=== PATIENT | female | born 1950 ===

== ENCOUNTER 2020-07-15 19:05 | Inpatient (IN) | payer MEDICARE, OTHER ==
[~2020-07-15] VITALS: Ht 157.5 cm; Wt 87.4 kg
--- NOTE | 2020-07-15 19:26 | NUR ---
pt arrived to ER for SOB, weakness and nausea for a week, pt also complaining of lower back pain radiating to her legs, pt has a history of arthiritis, daughter at bedside
[2020-07-15 19:54] LABS: BASOPHILS % (AUTO) 1 % (0-1); EOSINOPHILS % (AUTO) 12 % (1-7); LYMPHOCYTES % (AUTO) 26 % (22-44); MEAN CORPUSCULAR HEMOGLOBIN 32.3 pg (27.0-34.8); MEAN CORPUSCULAR HGB CONC 34.3 g/dL (32.4-35.8); MEAN PLATELET VOLUME 8.7 fL (7.4-10.4); MONOCYTES % (AUTO) 10 % (2-9); NEUTROPHILS % (AUTO) 51 % (42-75); PLATELET COUNT 257 x10^3/uL (130-400); RED BLOOD COUNT 3.68 x10^6/uL (3.82-5.3); RED CELL DISTRIBUTION WIDTH 14.4 % (9.6-15.2)
[2020-07-15 19:57] LABS: ALANINE AMINOTRANSFERASE 32 U/L (12-78); ALBUMIN 3.5 g/dL (3.4-5.0); ANION GAP 6 mmol/L (5-15); CALCIUM 9.7 mg/dL (8.5-10.1); CHLORIDE 108 mmol/L (98-107); CREATININE 0.65 mg/dL (0.55-1.02)
[2020-07-15 20:01] LABS: ALKALINE PHOSPHATASE 70 U/L (45-117); BILIRUBIN,TOTAL 0.5 mg/dL (0.2-1.0); TOTAL PROTEIN 6.7 g/dL (6.4-8.2); TROPONIN I < 0.015 ng/mL (0.000-0.045)
[2020-07-15] MEDS ORDERED: OMNIPAQUE 350 MG/ML, 100ML BOTTLE ONE (20:33)
[2020-07-15] MEDS ORDERED: ONDANSETRON 2MG/ML, 2ML IVPush ONE (21:00)
[2020-07-15] MEDS ORDERED: MORPHINE SULFATE 4 MG/ML, 1ML IVPush PRN ×2 (21:00)
[2020-07-15] MEDS ORDERED: PLEASE ENTER ALLERGIES MC SCH (21:00)
[2020-07-15] MEDS ORDERED: SODIUM CHLORIDE FLUSH 10ML SYR IVF ONE (21:00)
--- NOTE | 2020-07-15 22:30 | NUR ---
PTS IV WAS INFILITRATED AFTER CT SCAN, THIS RN APPLIED WARM COMPRESS TO SITE
[2020-07-15] MEDS ORDERED: KETOROLAC 30 MG/1 ML ONE (23:00)
[2020-07-15] MEDS ORDERED: KETOROLAC 30 MG/1 ML IVPush ONE (23:00)
--- NOTE | 2020-07-16 00:06 | NUR ---
PT FEELING BETTER AFTER PAIN MEDS ADMINISTERED, PROVIDER IN ROOM TO DISCUSS POC, PT WANTED TO GO HOME AFTER BEING OFFERED ADMISSION TO INPATIENT
[2020-07-16] MEDS ORDERED: ONDANSETRON ODT 4 MG ONE (00:27)
[2020-07-16] MEDS ORDERED: ONDANSETRON ODT 4 MG PO ONE (00:30)
--- NOTE | 2020-07-16 00:46 | NUR ---
WHEN PT GOT OUT OF BED SHE STARTED TO VOMIT AND COMPLAIN OF PAIN AGAIN, PROVIDER CALLED TO SEE PT AGAIN, PT AGREED TO STAY AND GET ADMITTED FOR PAIN MANAGEMENT, ZOFRAN ODT WAS GIVEN PRIOR TO DISCHARGE AND PT REPORTED A RELIEF IN NAUSEA
--- NOTE | 2020-07-16 01:40 | NUR ---
PT WAS FALLING ASLEEP AND HER OXYGEN LEVEL DROPPED TO 86%, THIS RN PUT HER ON OXGYEN NASAL CANULA AT 2LPM
--- NOTE | 2020-07-16 02:27 | NUR ---
ADMIT PROVIDER AT BEDSIDE
[2020-07-16] MEDS ORDERED: LABETALOL 5MG/ML, 20ML IVPush PRN (03:00)
--- NOTE | 2020-07-16 04:12 | NUR ---
REPORT GIVEN TO GEO MATTA
[2020-07-16 04:56] VITALS: BP 168/88
[2020-07-16 07:38] VITALS: BP 145/72
[2020-07-16 08:16] LABS: FREE T4 (FREE THYROXINE) 0.71 ng/dL (0.76-1.46)
[2020-07-16] MEDS: SENNA/DOCUSATE TABLET PO SCH (08:25)
[2020-07-16] MEDS: LISINOPRIL 10 MG TABLET PO SCH ×2 (08:25→21:48)
[2020-07-16] MEDS: PANTOPRAZOLE 40MG TABLET PO SCH (08:25)
[2020-07-16] MEDS: FLUOXETINE 10 MG CAP PO SCH (08:25)
[2020-07-16] MEDS: ONDANSETRON 2MG/ML, 2ML IVPush PRN (08:34)
[2020-07-16] MEDS: KETOROLAC 30 MG/1 ML IV PRN ×2 (08:35→17:06)
[2020-07-16] MEDS: OXYcodone IR 5MG TABLET PO PRN ×2 (11:54→21:51)
[2020-07-16] MEDS: LEVOTHYROXINE 50 MCG TABLET PO SCH (11:54)
[2020-07-16 14:54] VITALS: BP 100/63
[2020-07-16 18:53] VITALS: BP 119/78
[2020-07-17] MEDS: KETOROLAC 30 MG/1 ML IV PRN ×3 (01:06→18:28)
[2020-07-17 01:13] VITALS: BP 126/76
[2020-07-17 01:52] LABS: MICROSCOPIC AUTO
[2020-07-17] MEDS: ACETAMINOPHEN 325 MG TABLET PO PRN ×2 (06:13→19:50)
[2020-07-17] MEDS: PANTOPRAZOLE 40MG TABLET PO SCH (06:13)
[2020-07-17] MEDS: OXYcodone IR 5MG TABLET PO PRN ×3 (06:14→19:51)
[2020-07-17] MEDS: LEVOTHYROXINE 50 MCG TABLET PO SCH (06:14)
[2020-07-17] MEDS: CEFTRIAXONE 1,000 MG in DEXTROSE 5% 50 ML IVPB SCH (07:13)
[2020-07-17 07:18] VITALS: BP 112/72
[2020-07-17 07:55] LABS: INTERNATIONAL NORMALIZED RATIO 1.02 (0.93-1.1); PROTHROMBIN TIME 10.9 Seconds (9.6-11.5)
[2020-07-17] MEDS: SENNA/DOCUSATE TABLET PO SCH (08:22)
[2020-07-17] MEDS: LISINOPRIL 10 MG TABLET PO SCH ×2 (08:22→19:50)
[2020-07-17] MEDS: FLUOXETINE 10 MG CAP PO SCH (08:22)
[2020-07-17] MEDS ORDERED: methylPREDNISolone SOD SUCC 40 MG/ML INJ ONE (13:00)
[2020-07-17] MEDS ORDERED: OMNIPAQUE 300 MG/ML, 10ML VIAL ONE (13:00)
[2020-07-17 14:30] VITALS: BP 135/74
[2020-07-17 19:20] VITALS: BP 119/75
[2020-07-18 01:00] VITALS: BP 129/74
[2020-07-18] MEDS: KETOROLAC 30 MG/1 ML IV PRN (01:52)
[2020-07-18] MEDS: CEFTRIAXONE 1,000 MG in DEXTROSE 5% 50 ML IVPB SCH (05:36)
[2020-07-18] MEDS: LEVOTHYROXINE 50 MCG TABLET PO SCH (05:36)
[2020-07-18 08:32] LABS: BASOPHILS % (AUTO) 1 % (0-1); EOSINOPHILS % (AUTO) 0 % (1-7); LYMPHOCYTES % (AUTO) 19 % (22-44); MEAN CORPUSCULAR HEMOGLOBIN 32.1 pg (27.0-34.8); MEAN CORPUSCULAR HGB CONC 33.7 g/dL (32.4-35.8); MEAN PLATELET VOLUME 8.5 fL (7.4-10.4); MONOCYTES % (AUTO) 9 % (2-9); NEUTROPHILS % (AUTO) 71 % (42-75); PLATELET COUNT 235 x10^3/uL (130-400); RED BLOOD COUNT 3.43 x10^6/uL (3.82-5.3)
[2020-07-18 08:39] LABS: ANION GAP 6 mmol/L (5-15); CALCIUM 9.2 mg/dL (8.5-10.1); CHLORIDE 108 mmol/L (98-107); CREATININE 0.67 mg/dL (0.55-1.02)
[2020-07-18 08:42] VITALS: BP 121/72
[2020-07-18] MEDS: SENNA/DOCUSATE TABLET PO SCH (10:10)
[2020-07-18] MEDS: LISINOPRIL 10 MG TABLET PO SCH ×2 (10:10→19:43)
[2020-07-18] MEDS: PANTOPRAZOLE 40MG TABLET PO SCH (10:10)
[2020-07-18] MEDS: OXYcodone IR 5MG TABLET PO PRN ×2 (10:10→19:42)
[2020-07-18] MEDS: FLUOXETINE 10 MG CAP PO SCH (10:10)
[2020-07-18 14:42] VITALS: BP 107/66
[2020-07-18] MEDS ORDERED: DIPHENHYDRAMINE 50 MG/ML, 1ML IVPush PRN (18:00)
[2020-07-18 19:16] VITALS: BP 136/84
[2020-07-18 19:40] VITALS: BP 151/77
[2020-07-19 00:50] VITALS: BP 123/78
[2020-07-19] MEDS: OXYcodone IR 5MG TABLET PO PRN ×3 (02:22→19:45)
[2020-07-19] MEDS: CEFTRIAXONE 1,000 MG in DEXTROSE 5% 50 ML IVPB SCH (05:30)
[2020-07-19] MEDS: LEVOTHYROXINE 50 MCG TABLET PO SCH (05:30)
[2020-07-19 06:42] VITALS: BP 155/75
[2020-07-19] MEDS: PANTOPRAZOLE 40MG TABLET PO SCH (07:35)
[2020-07-19 08:40] VITALS: BP 136/96
[2020-07-19] MEDS: ONDANSETRON 2MG/ML, 2ML IVPush PRN (08:59)
[2020-07-19] MEDS: SENNA/DOCUSATE TABLET PO SCH (09:05)
[2020-07-19] MEDS: FLUOXETINE 10 MG CAP PO SCH (09:06)
[2020-07-19] MEDS: LISINOPRIL 10 MG TABLET PO SCH ×2 (09:06→19:44)
[2020-07-19 09:15] LABS: BASOPHILS % (AUTO) 1 % (0-1); EOSINOPHILS % (AUTO) 10 % (1-7); LYMPHOCYTES % (AUTO) 25 % (22-44); MEAN CORPUSCULAR HEMOGLOBIN 31.6 pg (27.0-34.8); MEAN CORPUSCULAR HGB CONC 33.3 g/dL (32.4-35.8); MEAN PLATELET VOLUME 9.3 fL (7.4-10.4); MONOCYTES % (AUTO) 6 % (2-9); NEUTROPHILS % (AUTO) 58 % (42-75); PLATELET COUNT 238 x10^3/uL (130-400); RED BLOOD COUNT 3.72 x10^6/uL (3.82-5.3)
[2020-07-19 09:23] LABS: ALBUMIN 3.5 g/dL (3.4-5.0); ANION GAP 6 mmol/L (5-15); CALCIUM 9.9 mg/dL (8.5-10.1); CHLORIDE 108 mmol/L (98-107)
[2020-07-19 09:34] LABS: ALANINE AMINOTRANSFERASE 26 U/L (12-78); ALKALINE PHOSPHATASE 63 U/L (45-117); BILIRUBIN,TOTAL 0.3 mg/dL (0.2-1.0); CREATININE 0.63 mg/dL (0.55-1.02); TOTAL PROTEIN 6.6 g/dL (6.4-8.2)
[2020-07-19] MEDS ORDERED: LACTULOSE 10 GM/15 ML UDC PO PRN (11:30)
[2020-07-19 13:33] VITALS: BP 111/68
[2020-07-19] MEDS ORDERED: ENAL10TA9 PO (16:58)
[2020-07-19] MEDS ORDERED: ALLO300T PO (16:58)
[2020-07-19] MEDS ORDERED: METH-640 PO (16:58)
[2020-07-19] MEDS ORDERED: IBUP-1223 PO (16:58)
[2020-07-19] MEDS ORDERED: ONDA-89 PO (16:58)
[2020-07-19] MEDS ORDERED: OMEP-110 PO (16:58)
[2020-07-19] MEDS ORDERED: TRAM50TA2 PO ×2 (17:43)
[2020-07-19] MEDS ORDERED: LEVO50TA PO (17:43)
[2020-07-19 19:21] VITALS: BP 149/83
[2020-07-20 00:46] VITALS: BP 148/89
[2020-07-20] MEDS: OXYcodone IR 5MG TABLET PO PRN ×2 (03:33→19:59)
[2020-07-20] MEDS: CEFTRIAXONE 1,000 MG in DEXTROSE 5% 50 ML IVPB SCH (05:24)
[2020-07-20] MEDS: LEVOTHYROXINE 50 MCG TABLET PO SCH (05:24)
[2020-07-20] MEDS: PANTOPRAZOLE 40MG TABLET PO SCH (07:43)
[2020-07-20 08:01] VITALS: BP 131/76
[2020-07-20] MEDS: SENNA/DOCUSATE TABLET PO SCH (09:08)
[2020-07-20] MEDS: FLUOXETINE 10 MG CAP PO SCH (09:08)
[2020-07-20] MEDS: LISINOPRIL 10 MG TABLET PO SCH ×2 (09:10→19:59)
[2020-07-20 13:02] VITALS: BP 148/77
[2020-07-20] MEDS ORDERED: HYDROmorphone 2 MG/ML, 1ML IVPush ONE (13:30)
[2020-07-20 19:47] VITALS: BP 156/72
[2020-07-20] MEDS: DEXAMETHASONE 4 MG/ML, 1ML IVPush SCH (21:36)
[2020-07-20] MEDS: GABAPENTIN 100 MG CAPSULE PO SCH (21:36)
[2020-07-21 00:21] VITALS: BP 146/87
[2020-07-21] MEDS: DEXAMETHASONE 4 MG/ML, 1ML IVPush SCH ×2 (03:29→09:50)
[2020-07-21 04:58] LABS: ANION GAP 7 mmol/L (5-15); CALCIUM 9.8 mg/dL (8.5-10.1); CHLORIDE 105 mmol/L (98-107)
[2020-07-21 05:01] LABS: BASOPHILS % (AUTO) 1 % (0-1); EOSINOPHILS % (AUTO) 0 % (1-7); LYMPHOCYTES % (AUTO) 17 % (22-44); MEAN CORPUSCULAR HEMOGLOBIN 31.9 pg (27.0-34.8); MEAN CORPUSCULAR HGB CONC 33.7 g/dL (32.4-35.8); MEAN PLATELET VOLUME 9.5 fL (7.4-10.4); MONOCYTES % (AUTO) 2 % (2-9); NEUTROPHILS % (AUTO) 81 % (42-75); PLATELET COUNT 274 x10^3/uL (130-400); RED BLOOD COUNT 3.98 x10^6/uL (3.82-5.3); RED CELL DISTRIBUTION WIDTH 13.9 % (9.6-15.2)
[2020-07-21] MEDS: LEVOTHYROXINE 50 MCG TABLET PO SCH (05:39)
[2020-07-21] MEDS: CEFTRIAXONE 1,000 MG in DEXTROSE 5% 50 ML IVPB SCH (05:39)
[2020-07-21 06:59] VITALS: BP 129/78
[2020-07-21] MEDS: PANTOPRAZOLE 40MG TABLET PO SCH (07:07)
[2020-07-21] MEDS: LISINOPRIL 10 MG TABLET PO SCH ×2 (08:27→22:21)
[2020-07-21] MEDS: SENNA/DOCUSATE TABLET PO SCH (08:27)
[2020-07-21] MEDS: GABAPENTIN 100 MG CAPSULE PO SCH (08:27)
[2020-07-21] MEDS: FLUOXETINE 10 MG CAP PO SCH (08:27)
[2020-07-21] MEDS: DEXAMETHASONE 4 MG TABLET PO SCH ×2 (11:42→17:09)
[2020-07-21 14:04] VITALS: BP 123/71
[2020-07-21] MEDS: GABAPENTIN 300 MG CAPSULE PO SCH ×2 (16:20→22:20)
[2020-07-21 20:29] VITALS: BP 129/78
[2020-07-22 02:28] VITALS: BP 112/63
[2020-07-22] MEDS: LEVOTHYROXINE 50 MCG TABLET PO SCH (06:31)
[2020-07-22 07:41] VITALS: BP 117/74
[2020-07-22] MEDS: SENNA/DOCUSATE TABLET PO SCH (08:36)
[2020-07-22] MEDS: DEXAMETHASONE 4 MG TABLET PO SCH ×3 (08:36→16:56)
[2020-07-22] MEDS: LISINOPRIL 10 MG TABLET PO SCH (08:36)
[2020-07-22] MEDS: GABAPENTIN 300 MG CAPSULE PO SCH ×2 (08:37→16:56)
[2020-07-22] MEDS: PANTOPRAZOLE 40MG TABLET PO SCH (08:37)
[2020-07-22] MEDS: FLUOXETINE 10 MG CAP PO SCH (08:37)
[2020-07-22 13:36] VITALS: BP 116/80
[2020-07-22] MEDS ORDERED: METH4TAB2 PO (13:57)
[2020-07-22] MEDS ORDERED: TRAM50TA2 PO (13:57)
[2020-07-22] MEDS ORDERED: GABA300C PO (13:57)
== END 2020-07-22 17:08 | disposition home health service (06) | DRG 552 ==
LOC: ED 07-16 05:03 → 3N 07-16 05:05
PROVIDERS: ADMIT Family Medicine; ATTEND Internal Medicine
PROC: 3E0R33Z Introduction of Anti-inflammatory into Spinal Canal, Percutaneous Approach (ICD-10-PCS; principal; 2020-07-17)
DX: M48.061 Spinal stenosis, lumbar region without neurogenic claudication (principal); G83.4 Cauda equina syndrome; K56.7 Ileus, unspecified; N39.0 Urinary tract infection, site not specified; D63.8 Anemia in other chronic diseases classified elsewhere; B96.20 Unspecified Escherichia coli [E. coli] as the cause of diseases classified elsewhere; E03.9 Hypothyroidism, unspecified; E66.01 Morbid (severe) obesity due to excess calories; Z88.5 Allergy status to narcotic agent; F32.9 Major depressive disorder, single episode, unspecified; G89.29 Other chronic pain; I10 Essential (primary) hypertension; K21.9 Gastro-esophageal reflux disease without esophagitis; M10.9 Gout, unspecified; M15.0 Primary generalized (osteo)arthritis; M54.16 Radiculopathy, lumbar region; R62.7 Adult failure to thrive; Z68.38 Body mass index [BMI] 38.0-38.9, adult; Z86.718 Personal history of other venous thrombosis and embolism; Z95.828 Presence of other vascular implants and grafts
CPT/HCPCS: 36415; 62323; 71045; 72148; 74177; 80048; 80053; 81001; 83690; 83880; 84439; 84443; 84484; 85025; 85610; 87077; 87086; 87186; 93005; G0378; J0696; J1100; J1170; J1885; J2405; Q0162; Q9967; J2920